=== PATIENT | male | born 1970 | race Caucasian/White ===

== ENCOUNTER 2016-05-21 14:10 | Emergency (ER) | payer MEDICAID ==
[~2016-05-21] VITALS: Ht 162.6 cm; Wt 75.0 kg
[2016-05-21 14:46] VITALS: Ht 162.6 cm; Wt 75.0 kg
[2016-05-21] MEDS ORDERED: ACETAMINOPHEN 500 MG TAB PO STA (16:41)
[2016-05-21] MEDS ORDERED: IBUPROFEN 600 MG TAB PO ONE (17:00)
--- NOTE | 2016-05-21 17:42 | RADRPT ---
PROCEDURE: XR Chest. CLINICAL INDICATION: Cough TECHNIQUE: Single AP view of the chest were obtained COMPARISON: None FINDINGS: The heart and mediastinum are within normal limits. The pulmonary vasculature are unremarkable. The aorta is unremarkable. There is no lung consolidation, pleural effusion or pneumothorax. There i s no acute osseous abnormality. IMPRESSION: No acute disease. RPTAT: AA .Nadia Chacon MD, Date Time Electronically viewed and signed by .Nadia Chacon MD, MD on 05/21/2016 17:42 .J/
--- NOTE | 2016-05-21 17:53 | ERD ---
ER Documentation Chief Complaint Date/Time DATE: 05/21/16 TIME: 17:51 Chief Complaint cough and fever x 2 days ROS All systems reviewed and are negative except as per history of present illness. Allergies Allergies: Coded Allergies: No Known Allergy (Unverified , 05/21/16) PMhx/Soc History of Surgery: Yes (hernia ) Anesthesia Reaction: No Hx Neurological Disorder: No Hx Respiratory Disorders: No Hx Cardiac Disorders: No Hx Psychiatric Problems: No Hx Miscellaneous Medical Probl: No Hx Alcohol Use: No Hx Substance Use: No Hx Tobacco Use: No Smoking Status: Unknown if ever smoked Physical Exam Vitals Vital Signs Date Time Temp Pulse Resp B/P Pulse Ox O2 Delivery O2 Flow Rate FiO2 05/21/16 14:46 103.4 105 24 107/59 95 Physical Exam Const: [] Head: Atraumatic Eyes: Normal Conjunctiva ENT: Normal External Ears, Nose and Mouth. Neck: Full range of motion..~ No meningismus. Resp: Clear to auscultation bilaterally Cardio: Regular rate and rhythm, no murmurs Abd: Soft, non tender, non distended. Normal bowel sounds Skin: No petechiae or rashes Back: No midline or flank tenderness Ext: No cyanosis, or edema Neur: Awake and alert Psych: Normal Mood and Affect Results 24 hrs Current Medications Medications (Trade) Dose Ordered Sig/Jacques Route PRN Reason Start Time Stop Time Status Last Admin Dose Admin Ibuprofen (Motrin) 600 mg ONCE ONCE PO 05/21/16 17:00 05/21/16 17:01 DC 05/21/16 16:59 Acetaminophen (Tylenol Tab) 500 mg ONCE STAT PO 05/21/16 16:41 05/21/16 16:44 DC 05/21/16 16:59 Procedures/MDM EMERGENCY DEPARTMENT COURSE / MEDICAL DECISION MAKING: This is a 45-year-old male who comes to the emergency room secondary to complaints of body aches and fevers. The patient was given Tylenol and ibuprofen in the department. On re-evaluation , the patient was feeling improved. Reevaluation of the temperature was ___. Lab results reviewed and showed no signs of influenza a or B. Radiology: PROCEDURE: XR Chest. CLINICAL INDICATION: Cough TECHNIQUE: Single AP view of the chest were obtained COMPARISON: None FINDINGS: The heart and mediastinum are within normal limits. The pulmonary vasculature are unremarkable. The aorta is unremarkable. There is no lung consolidation, pleural effusion or pneumothorax. There is no acute osseous abnormality. IMPRESSION: No acute disease. The primary diagnosis is upper respiratory infection, most likely viral in etiology. Secondary diagnosis is fever. I have low suspicion for sepsis, pneumonia, bronchitis, influenza a or B, and other emergencies at this time. Discharge: I have discussed the lab results and diagnostic findings with the patient and answered any questions or concerns. The patient was discharged with a prescription for Tylenol and ibuprofen. The patient was advised to followup with their PMD in 1-2 days and to return to the Emergency Department if there are any new or worsening symptoms. The patient understood and agreed with the diagnosis, treatment and plan. The patient is stable for discharge at this time. Departure Diagnosis: Primary Impression: Upper respiratory infection Additional Impression: Fever Condition: Stable ZOE HOANG PA-C May 21, 2016 17:53
[2016-05-21] MEDS ORDERED: IBUP-1542 PO (17:55)
[2016-05-21] MEDS ORDERED: ACET500T98 PO (17:55)
[2016-05-21 18:06] VITALS: PULSE 98; TEMP 99.8
== END 2016-05-21 18:06 | disposition home or self-care (01) ==
LOC: FTE 14:10
DX: J06.9 Acute upper respiratory infection, unspecified (principal)
CPT/HCPCS: 71010; 87400; Z7502; Z7610